=== PATIENT | male | born 1980 | race Caucasian/White ===

== ENCOUNTER 2018-03-24 23:46 | Emergency (ER) | payer SELFPAY ==
[2018-03-24] MEDS ORDERED: Sodium Chloride 0.9% 10 ML Syringe FLUSH PRN (23:56)
[2018-03-24] MEDS ORDERED: Sodium Chloride 0.9% 1,000 ML IV ONE (23:56)
[2018-03-25 00:17] LABS: CHLORIDE,CL 102 mmol/L (98-109); SODIUM,NA 139 mmol/L (138-146)
[2018-03-25] MEDS: Lidocaine 1% 30 ML SDV INJECT ONE ×2 (00:17→00:58)
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
== END 2018-03-25 00:35 | disposition left against medical advice (07) ==
LOC: VM.ED 23:46
DX: S71.131A Puncture wound without foreign body, right thigh, initial encounter (principal); S81.011A Laceration without foreign body, right knee, initial encounter; S71.111A Laceration without foreign body, right thigh, initial encounter; V86.59XA Driver of other special all-terrain or other off-road motor vehicle injured in nontraffic accident, initial encounter
CPT/HCPCS: 36415; 71045; 80053; 84484; 85025; 85610; 96360; 99284; G0480; J7030